=== PATIENT | female | born 1960 | race Caucasian/White ===

== ENCOUNTER 2022-12-12 08:51 | Day surgery (SDC) | payer OTHER ==
[~2022-12-12] VITALS: Ht 167.6 cm; Wt 86.2 kg
[2022-12-12] MEDS ORDERED: CLINDAMYCIN PHOS 600 MG/ D5W 50 ML PREMIX IV ONE (10:00)
[2022-12-12] MEDS ORDERED: fentaNYL CITRATE 250 MCG/5 ML AMP ONE (12:10)
[2022-12-12] MEDS ORDERED: MIDAZOLAM HCL 5 MG/5 ML VIAL ONE (12:10)
[2022-12-12] MEDS ORDERED: NS 1000 ML IV.SOLN IV ONE (12:10)
[2022-12-12] MEDS ORDERED: PROPOFOL 200MG/ 20ML VIAL (DIPRIVAN) IV ONE (12:10)
[2022-12-12] MEDS ORDERED: CLINDAMYCIN PHOSPHATE 600 mg/50mL D5W IV ONE (12:10)
[2022-12-12] MEDS ORDERED: DEXAMETHASONE SOD PHOSPHATE 4 MG/ML VIAL ONE (12:10)
[2022-12-12] MEDS ORDERED: ROCURONIUM BROMIDE 10 MG/ML (ZEMURON) ONE (12:10)
[2022-12-12] MEDS ORDERED: NS 100 ML BAG ONE (12:10)
[2022-12-12] MEDS ORDERED: ISOFLURANE 15 MIN GAS INH ONE (12:10)
[2022-12-12] MEDS ORDERED: LIDOCAINE JECT 2% PF 100 MG/5ML SYRINGE ONE (12:10)
[2022-12-12] MEDS ORDERED: NS IRRIG SOLN 1000 ML IR ONE (12:10)
[2022-12-12] MEDS ORDERED: BUPIVACAINE /PF 0.5% 30 ML VIAL ONE (12:10)
[2022-12-12] MEDS ORDERED: ONDANSETRON HCL 4 MG/2 ML VIAL ONE (12:10)
[2022-12-12] MEDS ORDERED: ACETAMINOPHEN I.V. 1000 MG 100 ML IV ONE (12:45)
[2022-12-12] MEDS ORDERED: MEPERIDINE HCL/PF 25 MG/ML DISP.SYRIN IVP PRN (13:00)
[2022-12-12] MEDS ORDERED: MIDAZOLAM HCL 2 MG/2 ML VIAL (VERSED) IVP PRN (13:00)
[2022-12-12] MEDS ORDERED: HYDROmorphone 1 MG/ML INJ. CARTRIDGE IVP PRN ×2 (13:00)
[2022-12-12] MEDS ORDERED: METOCLOPRAMIDE HCL 10 MG/2 ML VIAL IVP PRN (13:00)
[2022-12-12] MEDS ORDERED: HYDROcodone/ACETAMIN 5-325 MG TAB (NORCO/ VICODIN) PO PRN ×2 (13:30)
[2022-12-12] MEDS ORDERED: LR 1,000 ML IV SCH (13:30)
[2022-12-12] MEDS ORDERED: D5/0.45 NS 1,000 ML IV SCH (14:00)
[2022-12-12 16:17] VITALS: BP_SYST 145
== END 2022-12-12 15:40 | disposition home or self-care (01) ==
LOC: SDS 08:51 → SMU 08:52 → SDS 15:40
PROVIDERS: ATTEND Colon & Rectal Surgery
DX: K80.10 Calculus of gallbladder with chronic cholecystitis without obstruction (principal); J44.9 Chronic obstructive pulmonary disease, unspecified; E66.01 Morbid (severe) obesity due to excess calories; R73.01 Impaired fasting glucose; D84.81 Immunodeficiency due to conditions classified elsewhere; D84.821 Immunodeficiency due to drugs; M06.9 Rheumatoid arthritis, unspecified; Z88.0 Allergy status to penicillin; Z79.899 Other long term (current) drug therapy; Z68.33 Body mass index [BMI] 33.0-33.9, adult; Z20.822 Contact with and (suspected) exposure to COVID-19
CPT/HCPCS: 87081; 47563; 36415; 74300; 88304; 87426; J3490 ×2; J1100; J2250; J2405; J2704; J3010; Q9967; J7030; C1758; C1727; J0131; 76000